=== PATIENT | female | born 1955 | race Caucasian/White ===

== ENCOUNTER → 2017-01-02 | Outpatient (CLI) | payer BC | LOC: BRMIMAGING 10:40 | PROVIDERS: ATTEND Internal Medicine Hematology & Oncology | DX: Z13.820 Encounter for screening for osteoporosis (principal); M85.80 Other specified disorders of bone density and structure, unspecified site; E07.9 Disorder of thyroid, unspecified; C50.919 Malignant neoplasm of unspecified site of unspecified female breast; C56.9 Malignant neoplasm of unspecified ovary; Z78.0 Asymptomatic menopausal state ==

== ENCOUNTER 2017-03-25 08:20 | Emergency (ER) | payer BC ==
[2017-03-25 08:25] VITALS: TEMP 98.2
--- NOTE | 2017-03-25 08:34 | CPEKG ---
Heart Rate: 73 RR Interval: 822 P-R Interval: 180 QRSD Interval: 80 QT Interval: 392 QTC Interval: 432 P [place]: 57 QRS [place]: 29 T Wave [place]: 67 EKG Severity - NORMAL ECG - EKG Impression: SINUS RHYTHM Electronically Signed By: Devon Harris 25-Mar-2017 15:23:52
[2017-03-25] MEDS ORDERED: MAG HYDROX/AL HYDROX/SIMETH 30 ML UDCUP PO ONE (09:01)
[2017-03-25] MEDS ORDERED: LIDOCAINE 2% VISCOUS 15 ML UDCUP PO ONE (09:01)
[2017-03-25] MEDS ORDERED: LORazepam 1 MG TAB PO ONE (09:02)
--- NOTE | 2017-03-25 09:03 | EDPHY ---
H & P Time Seen by Provider: 03/25/17 08:38 HPI/ROS: Chief complaint. Trouble swallowing HPI. 61 year female per some urgency department with complaint that she has the sensation that she can't eat and the food goes down but it gets stuck in her mid chest. This been going on for about 1 week. She does not vomit. The discomfort is described as sharp burning. She also has which she feels is a muscle spasm the right posterior back along the upper thoracic spine. No radiation. She is swallowing secretions and eating and drinking. No vomiting. She is no increase in symptoms with breathing or exertion. She is not short of breath. She does not have similar symptoms previously. She was diagnosed with breast cancer in 2013. She is concerned about metastases are spread of the cancer. She tells me she is very anxious. She also took a neighbors muscle relaxer last night for the upper back pain. ROS Constitutional. no fever/chills, no weakness Eyes. no problems with vision ENT. no sore throat, no nasal drainage Cardiovascular. Retrosternal chest fullness with swallowing though also discomfort in between Respiratory. no shortness of breath, no cough Abdominal. no abdominal pain, no nausea/vomiting, no diarrhea . no problems urinating MS. Upper right back pain Skin. no rash Lymph. no swollen glands Neuro. no headache, no dizziness, no difficulty walking or with speech Past Medical/Surgical History: Past medical history is significant for appendectomy, , hysterectomy, ovarian cancer, breast cancer, bowel obstruction Social History: , nonsmoker, no alcohol Smoking Status: Never smoked Physical Exam: General Appearance: Alert pleasant well-developed female mild distress vital signs are stable Eyes: Pupils equal and round no pallor or injection. ENT, Mouth: Mucous membranes are moist. Respiratory: There are no retractions, lungs are clear to auscultation. Cardiovascular: Regular rate and rhythm. Gastrointestinal: Abdomen is soft and nontender, no masses, bowel sounds normal. Neurological: Awake and alert, sensory and motor exams grossly normal. Skin: Warm and dry, no rashes. Musculoskeletal: Neck is supple nontender. Extremities symmetrical, full range of motion. Psychiatric: Patient is oriented X 3, there is no agitation. Constitutional: Initial Vital Signs Temperature (C) 36.8 C 03/25/17 08:22 Heart Rate 72 03/25/17 08:22 Respiratory Rate 16 03/25/17 08:22 Blood Pressure 166/79 H 03/25/17 08:22 O2 Sat (%) 97 03/25/17 08:22 O2 Delivery Mode Room Air Allergies/Adverse Reactions: Penicillins Allergy (Verified 07/01/13 14:56) Home Medications: Medication Instructions Recorded Aspirin [Aspirin 81mg (OTC)] 81 mg PO DAILY 07/01/13 Calcium Carbonate [Oyster Shell 500 mg PO BID 07/01/13 Calcium 500 mg (OTC)] Diazepam [Valium 5 MG (RX)] 2.5 mg PO DAILY PRN 07/01/13 Estradiol [Estrace] 0.5 mg PO DAILY 07/01/13 Herbals/Supplements -Info Only 1 each PO AD 07/01/13 Ibuprofen [Motrin] 400 mg PO DAILY PRN 07/01/13 Multivitamins [Tab-A-Abhijit] 1 each PO DAILY 07/01/13 [place]-3 Fatty Acids [Fish Oil 1000 1,000 mg PO DAILY 07/01/13 mg (OTC)] guaiFENesin [Mucinex 600 MG (OTC)] 1,200 mg PO BID PRN 07/01/13 Esomeprazole Mag Trihydrate 40 mg PO DAILY #10 cap 03/25/17 [Nexium] Medical Decision Making - Diagnostics EKG Interpretation: EKG interpreted by me shows normal sinus rhythm with normal interval and axis. QRS is normal there is no significant ST elevation or depression. There is no arrhythmia. The rate is 73 Imaging Results: Imaging Impressions Chest X-Ray 03/25/17 09:01 Impression: Normal. No source for chest pain identified. Chest x-ray reviewed by me is normal. No evidence for pneumonia or pneumothorax Procedures: IV normal saline monitor. GI cocktail ED Course/Re-evaluation: On re-evaluation patient's symptoms are much improved after the GI cocktail. She does have some some residual discomfort. The patient, her , and I discussed imaging lab an EKG findings. We discussed treatment plan. She is offered admission but feels well to go home. We discussed criteria for return and importance of follow-up and further evaluation. They expressed understanding and agreement Differential Diagnosis: I considered acute coronary syndrome, pulmonary embolus, pancreatitis, pneumonia , metastases. It would appear that this is reflux and esophageal inflammation. There is no evidence for esophageal foreign body at this point. She is handling secretions. She is drinking and eating. She is conversational in full sentences - Data Points Laboratory Results: Laboratory Results 03/25/17 08:53 03/25/17 08:53 03/25/17 03/25/17 03/25/17 08:53 08:53 08:53 WBC 4.53 10^3/uL 10^3/uL (3.80-9.50) RBC 4.39 10^6/uL 10^6/uL (4.18-5.33) Hgb 14.4 g/dL g/dL (12.6-16.3) Hct 40.9 % % (38.0-47.0) MCV 93.2 fL fL (81.5-99.8) MCH 32.8 pg pg (27.9-34.1) MCHC 35.2 g/dL g/dL (32.4-36.7) RDW 12.8 % % (11.5-15.2) Plt Count 289 10^3/uL 10^3/uL (150-400) MPV 9.5 fL fL (8.7-11.7) Neut % (Auto) 51.4 % % (39.3-74.2) Lymph % (Auto) 35.3 % % (15.0-45.0) [place] % (Auto) 8.2 % % (4.5-13.0) Eos % (Auto) 4.0 % % (0.6-7.6) Baso % (Auto) 0.9 % % (0.3-1.7) Nucleat RBC Rel Count 0.0 % % (0.0-0.2) Absolute Neuts (auto) 2.33 10^3/uL 10^3/uL (1.70-6.50) Absolute Lymphs (auto) 1.60 10^3/uL 10^3/uL (1.00-3.00) Absolute Monos (auto) 0.37 10^3/uL 10^3/uL (0.30-0.80) Absolute Eos (auto) 0.18 10^3/uL 10^3/uL (0.03-0.40) Absolute Basos (auto) 0.04 10^3/uL 10^3/uL (0.02-0.10) Absolute Nucleated RBC 0.00 10^3/uL 10^3/uL (0-0.01) Immature Gran % 0.2 % % (0.0-1.1) Immature Gran # 0.01 10^3/uL 10^3/uL (0.00-0.10) D-Dimer < 0.27 ug/mLFEU ug/mLFEU (0.00-0.50) Sodium 144 mEq/L mEq/L (134-144) Potassium 4.0 mEq/L mEq/L (3.5-5.2) Chloride 108 mEq/L mEq/L (97-110) Carbon Dioxide 26 mEq/l mEq/l (22-31) Anion Gap 10 mEq/L mEq/L (8-16) BUN 21 mg/dL mg/dL (7-23) Creatinine 0.9 mg/dL mg/dL (0.6-1.0) Estimated GFR > 60 Glucose 102 mg/dL H mg/dL (70-100) Calcium 9.8 mg/dL mg/dL (8.5-10.4) Troponin I < 0.012 ng/mL ng/mL (0.000-0.034) Lipase 125 IU/L IU/L (23-300) Medications Given: Discontinued Medications Al Hydroxide/Mg Hydroxide (Maalox Susp) 30 ml PO ONCE ONE Stop: 03/25/17 09:02 Last Admin: 03/25/17 09:19 Dose: 30 ml Lidocaine (Lidocaine 2% Viscous) 15 ml PO ONCE ONE Stop: 03/25/17 09:02 Last Admin: 03/25/17 09:19 Dose: 15 ml Lorazepam (Ativan) 1 mg PO EDNOW ONE Stop: 03/25/17 09:03 Last Admin: 03/25/17 09:19 Dose: 1 mg Departure - Departure Disposition: Home, Routine, Self-Care Clinical Impression: Esophagitis Condition: Good Instructions: Gastroesophageal Reflux Disease (ED) Additional Instructions: Maalox or Mylanta using 2 tbsp every 6-8 hours and at bedtime. Nexium to help soothe esophagus. Return for worsening chest discomfort or trouble breathing or difficulty swallowing. Call gastroenterology on Monday for follow-up evaluation. Referrals: Angela Barros MD [Primary Care Provider] - As per Instructions Royce Chavez MD, FACG [Medical Doctor] - As per Instructions Prescriptions: Esomeprazole Mag Trihydrate [Nexium] 40 mg PO DAILY #10 cap.
[2017-03-25 09:07] LABS: PLATELET COUNT 289 10^3/uL (150-400)
[2017-03-25 10:28] VITALS: BP 126/78; PULSE 69; RESP 16; O2SAT 96
== END 2017-03-25 10:29 | disposition home or self-care (01) ==
DX: K20.9 Esophagitis, unspecified (principal); Z85.43 Personal history of malignant neoplasm of ovary; Z85.3 Personal history of malignant neoplasm of breast; Z79.82 Long term (current) use of aspirin

== ENCOUNTER → 2017-05-03 | Outpatient (CLI) | payer BC | LOC: FIMAGING 13:55 | PROVIDERS: ATTEND Internal Medicine | DX: J40 Bronchitis, not specified as acute or chronic (principal) ==

== ENCOUNTER → 2018-05-29 | Outpatient (CLI) | payer BC | LOC: FIMAGING 13:46 | PROVIDERS: ATTEND Internal Medicine | DX: R91.1 Solitary pulmonary nodule (principal); D73.89 Other diseases of spleen; Z85.3 Personal history of malignant neoplasm of breast ==

== ENCOUNTER → 2018-07-19 | Outpatient (CLI) | payer BC | LOC: FIMAGING 12:02 | PROVIDERS: ATTEND Physician Assistant | DX: M53.3 Sacrococcygeal disorders, not elsewhere classified (principal) ==

== ENCOUNTER → 2018-09-11 | Outpatient (CLI) | payer BC | LOC: FIMAGING 06:53 ==